=== PATIENT | female | born 2000 | race Two or more races ===

== ENCOUNTER 2024-12-18 15:02 | Emergency (ER) | payer OTHER ==
[~2024-12-18] VITALS: Ht 167.6 cm; Wt 104.3 kg
[2024-12-18] MEDS ORDERED: ZOLOFT100 MG PO (15:36)
[2024-12-18] MEDS ORDERED: RISPERDAL0.5 MG (15:36)
[2024-12-18] MEDS ORDERED: ZOLOFT25 MG PO (15:37)
[2024-12-18] MEDS ORDERED: KETOROLAC TROMETHAMINE 60 MG VIAL IM ONE (17:00)
[2024-12-18] MEDS ORDERED: IBUPROFEN800 MG PO (20:11)
== END 2024-12-18 20:15 | disposition home or self-care (01) ==
LOC: ER 15:22
DX: G89.11 Acute pain due to trauma (principal); M25.572 Pain in left ankle and joints of left foot

== ENCOUNTER 2025-03-28 11:08 | Emergency (ER) | payer OTHER ==
[~2025-03-28] VITALS: Ht 167.6 cm; Wt 129.7 kg
[~2025-03-28 11:08] MED LIST: IBUPROFEN800 MG PO; RISPERDAL0.5 MG; ZOLOFT100 MG PO; ZOLOFT25 MG PO
[2025-03-28] MEDS ORDERED: 0.9 % SODIUM CHLORIDE 1,000 ML IV STA (12:17)
[2025-03-28] MEDS ORDERED: METHYLPREDNISOLONE SOD SUCC 125 MG VIAL IV ONE (12:30)
[2025-03-28] MEDS ORDERED: IPRATROPIUM BROMIDE 0.5 MG/2.5 ML AMPUL.NEB IH SCH (12:30)
[2025-03-28] MEDS ORDERED: CEFTRIAXONE SODIUM 2,000 MG VIAL IV ONE (12:30)
[2025-03-28] MEDS ORDERED: DIPHENHYDRAMINE HCL 50 MG/ML VIAL 1ML IV ONE (12:30)
[2025-03-28] MEDS ORDERED: ALBUTEROL SULFATE 3 ML/2.5 MG AMPUL.NEB IH SCH (12:30)
[2025-03-28] MEDS ORDERED: METHYLPREDNISOLONE SOD SUCC 125 MG VIAL ONE (13:03)
[2025-03-28] MEDS ORDERED: DIPHENHYDRAMINE HCL 50 MG/ML VIAL 1ML ONE (13:03)
[2025-03-28] MEDS ORDERED: CEFTRIAXONE SODIUM 2,000 MG VIAL ONE (13:03)
[2025-03-28 14:12] LABS: BASO % 0.5 % (0.1-1.2); EOS # 0.25 (0.04-0.54); EOS % 2.3 % (0.7-7.0); LYMPH # 3.10 (1.18-3.74); LYMPH % 28.5 % (19.3-53.1); MEAN PLATELET VOLUME 9.90 fl (9.4-12.4); MONO # 0.62 (0.24-0.82); MONO % 5.7 % (4.7-12.5); NEUT # 6.82 (1.56-6.13); NEUT % 62.6 % (34.0-71.1); RED CELL DISTRIBUTION WIDTH 14.0 % (11.6-14.4)
[2025-03-28] MEDS ORDERED: IPRATROPIUM BROMIDE 0.5 MG/2.5 ML AMPUL.NEB IH ONE (14:29)
[2025-03-28] MEDS ORDERED: LEVALBUTEROL HCL 0.63 MG/3 ML SOLUTION IH ONE (14:30)
[2025-03-28 14:38] LABS: COVID-19 AG NEGATIVE (NEGATIVE)
[2025-03-28 14:58] LABS: ERYTHROCYTE SEDIMENTATION RATE 45 mm/hr (0-20)
[2025-03-28 15:07] LABS: BUN CREA RATIO 12.0 (7.0-25.0); CREATININE SERUM 0.51 mg/dL (0.55-1.02); GFR 145.77; GLUCOSE FASTING 86.0 mg/dL (65-100); OSMOLALITY SERUM 276.0 MOSM/KG (275-295)
[2025-03-28] MEDS ORDERED: ALBUTEROL2.5 MG/3 M IH (17:55)
[2025-03-28] MEDS ORDERED: BUDESONIDE0.5 MG/2 M IH (17:55)
[2025-03-28] MEDS ORDERED: MEDROLPACK PO (17:55)
[2025-03-28] MEDS ORDERED: ZITHROMAX500 MG PO (17:55)
== END 2025-03-28 18:36 | disposition home or self-care (01) ==
LOC: ER 11:09
PROVIDERS: General Practice
DX: J45.901 Unspecified asthma with (acute) exacerbation (principal); J06.9 Acute upper respiratory infection, unspecified; J04.0 Acute laryngitis; R06.02 Shortness of breath; R05.8 Other specified cough; Z20.822 Contact with and (suspected) exposure to COVID-19